=== PATIENT | female | born 1980 | race Caucasian/White ===

== ENCOUNTER 2018-05-25 07:10 | Emergency (ER) | payer BC ==
[2018-05-25] MEDS ORDERED: Sodium Chloride 0.9% 10 ML Syringe FLUSH PRN (07:48)
[2018-05-25] MEDS ORDERED: HYDROmorphone 0.5 MG/0.5 ML SYRINGE IVPUSH ONE (07:50)
[2018-05-25] MEDS ORDERED: cefTRIAXone 2 GM in Sodium Chloride 0.9% 100 ML IV ONE (07:50)
[2018-05-25] MEDS ORDERED: Sodium Chloride 0.9% 1,000 ML IV SCH (08:00)
--- NOTE | 2018-05-25 08:20 | EDM.PDOC ---
ED HPI GENERAL MEDICAL PROBLEM - General Chief Complaint: ENT Problem Stated Complaint: R EAR PAIN/FACE AND NECK Time Seen by Provider: 05/25/18 07:41 Source of Information: Reports: Patient History Limitations: Reports: No Limitations - History of Present Illness INITIAL COMMENTS - FREE TEXT/NARRATIVE: The patient presents with severe right ear pain. Last weekend she went swimming and plugged her right ear. She went to the walk in clinic and they irrigated her ear and it felt better. the pain came back and she went back to the walk in clinic and she was prescribed ear drops. She has been taking them for 2 days and she has severe pain to the right ear now with some swelling to her neck and face and numbness in those areas. She has slight decreased hearing. She has no fever or chills. She has no cough, congestion, chest pain, shortness of breath, abdominal pain, nausea or vomiting. Onset: Gradual Duration: Week(s): Location: Reports: Other (right ear) Quality: Reports: Sharp Severity: Severe Improves with: Reports: None Worsens with: Reports: None Context: Reports: Other (This all started after swimming.) Associated Symptoms: Reports: No Other Symptoms Right Ear Pain Score (Numeric/FACES): 7 - Related Data Allergies Allergy/AdvReac Type Severity Reaction Status Date / Time Penicillins Allergy Cannot Verified 05/25/18 07:19 Remember Home Meds: Home Meds Acetaminophen with Codeine [Tylenol with Codeine #3 Tablet] 1 tab PO Q4H [History] Ciprofloxacin/Dexamethasone [Ciprodex Otic Susp] 4 drop EARRT BID #1 bottle [Rx] Hydrocodone/Acetaminophen [Hydrocodon-Acetaminophen 5-325] 1 - 2 each PO Q6HR PRN #20 tablet 05/25/18 [Rx] Levofloxacin [Levaquin] 750 mg PO DAILY #7 tablet 05/25/18 [Rx] Neomycin/Polymyxin B Sulf/HC [Zgkqkzqc-Qrerpmdcx-Ur Ear Soln] 4 drop EARRT QID 05/25/18 [History] methylPREDNISolone [Medrol] 4 mg PO ASDIRECTED #1 dosepk 05/25/18 [Rx] Past Medical History - Past Surgical History HEENT Surgical History: Reports: Tonsillectomy GI Surgical History: Reports: Cholecystectomy Social & Family History - Tobacco Use Smoking Status *Q: Current Every Day Smoker Years of Tobacco use: 11 Packs/Tins Daily: 0.5 - Recreational Drug Use Recreational Drug Use: No ED ROS ENT - Review of Systems Review Of Systems: See Below Constitutional: Reports: No Symptoms HEENT: Reports: Ear Pain (right severe) Respiratory: Reports: No Symptoms Cardiovascular: Reports: No Symptoms Endocrine: Reports: No Symptoms GI/Abdominal: Reports: No Symptoms : Reports: No Symptoms Musculoskeletal: Reports: No Symptoms ED EXAM, ENT - Physical Exam Exam: See Below Exam Limited By: No Limitations General Appearance: Alert, Moderate Distress Ears: Other (Left ear looks good along with the TM. The right ear has pain upon palpation with edema anterior to the ear and pain upon palpation to the mastoid sinus on the right. The canal has erythema, edema and some drainage. The TM appears to be intact with erythema and fluid.) Nose: Normal Inspection Mouth/Throat: Normal Inspection Head: Atraumatic, Normocephalic Neck: Lymphadenopathy (R) Respiratory/Chest: No Respiratory Distress, Lungs Clear, Normal Breath Sounds Cardiovascular: Regular Rate, Rhythm, No Edema, No Murmur GI/Abdominal: Soft, Non-Tender, No Organomegaly, No Mass Back: Normal Inspection Extremities: Normal Inspection Course - Vital Signs Last Recorded V/S: Last Vital Signs Temp 97.8 F 05/25/18 07:19 Pulse 107 H 05/25/18 07:19 Resp 18 05/25/18 07:19 BP 146/107 H 05/25/18 07:19 Pulse Ox 98 05/25/18 07:19 - Orders/Labs/Meds Orders: Active Orders 24 hr Category Date Time Status Peripheral IV Care [RC] . DIRECTED Care 05/25/18 07:49 Active Maxillofacial w/o CM [Max Facial Sinus wo Cont] [CT] Exams 05/25/18 07:49 Taken Stat Sodium Chloride 0.9% [Normal Saline] 1,000 ml Med 05/25/18 08:00 Active IV ASDIRECTED Sodium Chloride 0.9% [Saline Flush] Med 05/25/18 07:48 Active 10 ml FLUSH ASDIRECTED PRN Peripheral IV Insertion Adult [OM.PC] Stat Oth 05/25/18 07:48 Ordered Medication Orders Sodium Chloride (Normal Saline) 1,000 mls @ 125 mls/hr IV ASDIRECTED GUSTAVO Last Admin: 05/25/18 08:10 Dose: 125 mls/hr Sodium Chloride (Saline Flush) 10 ml FLUSH ASDIRECTED PRN PRN Reason: Keep Vein Open Last Admin: 05/25/18 08:13 Dose: 10 ml Labs: Laboratory Tests 05/25/18 05/25/18 Range/Units 08:04 08:04 WBC 10.33 H (3.98-10.04) K/mm3 RBC 4.93 (3.98-5.22) M/mm3 Hgb 15.5 (11.2-15.7) gm/L Hct 45.0 H (34.1-44.9) % MCV 91.3 (79.4-94.8) fl MCH 31.4 (25.6-32.2) pg MCHC 34.4 (32.2-35.5) g/dl RDW Std Deviation 44.6 (36.4-46.3) fL Plt Count 278 (182-369) K/mm3 MPV 9.5 (9.4-12.3) fl Neut % (Auto) 63.4 (34.0-71.1) % Lymph % (Auto) 24.8 (19.3-51.7) % [place] % (Auto) 8.4 (4.7-12.5) % Eos % (Auto) 2.5 (0.7-5.8) Baso % (Auto) 0.4 (0.1-1.2) % Neut # (Auto) 6.55 H (1.56-6.13) K/mm3 Lymph # (Auto) 2.56 (1.18-3.74) K/mm3 [place] # (Auto) 0.87 H (0.24-0.36) K/mm3 Eos # (Auto) 0.26 (0.04-0.36) K/mm3 Baso # (Auto) 0.04 (0.01-0.08) K/mm3 Sodium 135 L (136-145) mEq/L Potassium 4.1 (3.5-5.1) mEq/L Chloride 103 (98-107) mEq/L Carbon Dioxide 24 (21-32) mEq/L Anion Gap 12.1 (5-15) BUN 8 (7-18) mg/dL Creatinine 0.9 (0.55-1.02) mg/dL Est Cr Clr Drug Dosing 60.28 mL/min Estimated GFR (MDRD) > 60 (>60) mL/min BUN/Creatinine Ratio 8.9 L (14-18) Glucose 128 H (74-106) mg/dL Calcium 8.6 (8.5-10.1) mg/dL Total Bilirubin 0.4 (0.2-1.0) mg/dL AST 25 (15-37) U/L ALT 54 (14-59) U/L Alkaline Phosphatase 88 (46-116) U/L C-Reactive Protein 1.2 H* (<1.0) mg/dL Total Protein 7.6 (6.4-8.2) g/dl Albumin 3.6 (3.4-5.0) g/dl Globulin 4.0 gm/dL Albumin/Globulin Ratio 0.9 L (1-2) Meds: Medications Generic Name Dose Route Start Last Admin Trade Name Freq PRN Reason Stop Dose Admin Sodium Chloride 1,000 mls @ 125 mls/hr 05/25/18 08:00 05/25/18 08:10 Normal Saline IV 125 mls/hr ASDIRECTED GUSTAVO Administration Sodium Chloride 10 ml 05/25/18 07:48 05/25/18 08:13 Saline Flush FLUSH 10 ml ASDIRECTED PRN Administration Keep Vein Open Discontinued Medications Generic Name Dose Route Start Last Admin Trade Name Hubertq PRN Reason Stop Dose Admin Hydromorphone HCl 0.5 mg 05/25/18 07:50 05/25/18 08:10 Dilaudid IVPUSH 05/25/18 07:51 0.5 mg ONETIME ONE Administration Hydromorphone HCl 1 mg 05/25/18 09:28 05/25/18 09:35 Dilaudid IVPUSH 05/25/18 09:29 1 mg ONETIME ONE Administration Ceftriaxone Sodium 2 gm/ 100 mls @ 100 mls/hr 05/25/18 07:50 05/25/18 08:12 Sodium Chloride IV 05/25/18 08:49 100 mls/hr ONETIME ONE Administration Ondansetron HCl 4 mg 05/25/18 08:29 05/25/18 08:34 Zofran IVPUSH 05/25/18 08:30 4 mg ONETIME ONE Administration - Re-Assessments/Exams Free Text/Narrative Re-Assessment/Exam: 05/25/18 08:21 I ordered an IV saline lock, labs, CT maxillofacial, rocephin and dilaudid. 05/25/18 09:37 Her WBC was slightly elevated at 10.33. Her Na was slightly low at 135. Her glucose was elevated at 128. Her CRP was elevated at 1.2. I am waiting for the radiologist read on the CT. [facility] is behind with reads to day. 05/25/18 10:[address] shows minimal mucosal thickening in the ethmoid sinuses. Mild opacities in some of the right mastoid air cells may represent acute or chronic mastoiditis. I called the telephone recorder ENT Doctor at [facility] Dr Velez. He did not think this was true mastoiditis. He felt this was otitis externa, media and cellulitis. He wanted her on levaquin, medrol dose pack and ciprodex. The patient did have more pain so I did order her more dilaudid and that helped. I will discharge her home. Departure - Departure Time of Disposition: 10:40 Disposition: Home, Self-Care 01 Condition: Good Clinical Impression: Otitis media Qualifiers: Otitis media type: serous Chronicity: acute Laterality: right Recurrence: not specified as recurrent Qualified Code(s): H65.01 - Acute serous otitis media, right ear Otitis externa Qualifiers: Otitis externa type: diffuse Chronicity: acute Laterality: right Qualified Code (s): H60.311 - Diffuse otitis externa, right ear Cellulitis Qualifiers: Site of cellulitis: face Qualified Code(s): L03.211 - Cellulitis of face - Discharge Information *PRESCRIPTION DRUG MONITORING PROGRAM REVIEWED*: No *COPY OF PRESCRIPTION DRUG MONITORING REPORT IN PATIENT HENOK: No Prescriptions: Hydrocodone/Acetaminophen [Hydrocodon-Acetaminophen 5-325] 1 - 2 each PO Q6HR PRN #20 tablet PRN Reason: Pain Ciprofloxacin/Dexamethasone [Ciprodex Otic Susp] 4 drop EARRT BID #1 bottle Levofloxacin [Levaquin] 750 mg PO DAILY #7 tablet methylPREDNISolone [Medrol] 4 mg PO ASDIRECTED #1 dosepk Referrals: PCP,None [Primary Care Provider] - Forms: ED Department Discharge Additional Instructions: Take the levaquin daily for 7 days. Use the ciprodex drops 4 drops in the right ear. Make sure you shake them up good before and lay on your side for at least 5 minutes after. Take the medrol dose pack as directed on the pack. Take the hydrocodone as needed for pain. Follow up with Dr Velez at [facility] in 1 week. Please return if you are worse. - My Orders Last 24 Hours: My Active Orders 05/25/18 07:48 Sodium Chloride 0.9% [Saline Flush] 10 ml FLUSH ASDIRECTED PRN Peripheral IV Insertion Adult [OM.PC] Stat 05/25/18 07:49 Peripheral IV Care [RC] . DIRECTED Maxillofacial w/o CM [Max Facial Sinus wo Cont] [CT] Stat 05/25/18 08:00 Sodium Chloride 0.9% [Normal Saline] 1,000 ml IV ASDIRECTED - Assessment/Plan Last 24 Hours: My Active Orders 05/25/18 07:48 Sodium Chloride 0.9% [Saline Flush] 10 ml FLUSH ASDIRECTED PRN Peripheral IV Insertion Adult [OM.PC] Stat 05/25/18 07:49 Peripheral IV Care [RC] . DIRECTED Maxillofacial w/o CM [Max Facial Sinus wo Cont] [CT] Stat 05/25/18 08:00 Sodium Chloride 0.9% [Normal Saline] 1,000 ml IV ASDIRECTED
[2018-05-25] MEDS ORDERED: Ondansetron 4 MG/2 ML SDV IVPUSH ONE (08:29)
[2018-05-25] MEDS ORDERED: HYDROmorphone 1 MG/ML Syringe IVPUSH ONE (09:28)
--- NOTE | 2018-05-27 07:13 | CT ---
CT facial bones Technique: Multiple axial sections through the facial bones were obtained. Reconstructed coronal and sagittal images were obtained. Findings: Minimal mucosal thickening seen within the ethmoid sinuses. Paranasal sinuses are otherwise clear. No air-fluid levels are seen. No acute bony abnormality is identified. Minimal mucosal thickening is seen within the right mastoid sinus. Mastoid sinuses are otherwise clear as well as middle ear cavities appearing clear. Impression: 1. Slight mucosal thickening within the right mastoid sinus likely representing minimal mucosal thickening. 2. Minimal mucosal thickening within the ethmoid sinuses. 3. CT study of the facial bones is otherwise unremarkable. Diagnostic code #2 I agree with preliminary report from [facility], finalized on 05/25/18, 11:13 AM Central Time
== END 2018-05-25 10:55 | disposition home or self-care (01) ==
LOC: JD.ED 07:10
DX: H65.01 Acute serous otitis media, right ear (principal); H60.311 Diffuse otitis externa, right ear; L03.211 Cellulitis of face; Z88.0 Allergy status to penicillin; F17.210 Nicotine dependence, cigarettes, uncomplicated
CPT/HCPCS: 36415; 70486; 80053; 85025; 86140; 96361; 96365; 96375; 96376; 99284; J0696; J1170; J2405; J7030; J7040; J7050